=== PATIENT | male | born 1955 | race Caucasian/White ===

== ENCOUNTER → 2021-07-18 09:45 | Outpatient (BNVA) | payer MEDICARE, SELFPAY | PROVIDERS: PCP Internal Medicine; Visit Provider Surgery ==

== ENCOUNTER 2021-08-09 13:53 | Outpatient (REF) | payer MEDICARE, SELFPAY ==
[2021-08-09 13:59] VITALS: BMI 44.4
[2021-08-09 14:01] VITALS: BP 125/83; PULSE 106; RESP 16; TEMP 36.6; O2SAT 98
--- NOTE | 2021-08-09 14:22 | W.PM.OPN ---
Operative Note Operative Note Date of Service: 08/09/21 Narrative: Preop diagnosis: Skin lesion, right upper arm Postop diagnosis: The same Procedure: Excision of skin lesion, right upper arm under local anesthesia Surgeon: Reese Obregon MD Patient is a 66-year-old male with note of skin lesion on the right upper arm near the shoulder. This measured about 2.6 by 3 cm, elevated with pearly borders. He understood the technique of excision under local anesthesia and he was aware of the risks, benefits, and alternatives Was brought to the minor procedure room and placed in left lateral decubitus position. The area of the lesion was prepped and draped in the usual sterile fashion. I infiltrated the area with lidocaine 1%. I made an incision around the lesion in elliptical fashion using blade 15. With care being taken so as to make sure that we were including a margin of skin. This incision was deepened through the full-thickness of the skin and part of subcutaneous layer and this entire lesion along with normal margins was excised. I undermined as flaps on both sides the edges to allow closure without tension. I closed the incision with full-thickness nylon 3-0 and 2-0 sutures. Dressings were applied. The patient tolerated procedure well. There were no complication noted. Estimated blood loss was about 4 cc. The patient was given wound care instructions and will be seen in the office for follow-up visit.
[2021-08-09 14:23] VITALS: BP 121/73; PULSE 94; RESP 16; O2SAT 94
== END 2021-08-09 13:54 | disposition home or self-care (01) ==
LOC: HO.MS 13:53
PROVIDERS: PCP Internal Medicine; Visit Provider Surgery
PROC: (CPT 11603; principal; 2021-08-09 14:10)
DX: C43.61 Malignant melanoma of right upper limb, including shoulder (principal)
CPT/HCPCS: 11603; 36415; 81210; 81272; 81275; 81276; 81311; 81403; 88305; 88341; 88342

== ENCOUNTER → 2021-08-21 10:42 | Outpatient (BNVA) | payer MEDICARE, SELFPAY | PROVIDERS: PCP Internal Medicine; Visit Provider Surgery | DX: Z48.00 Encounter for change or removal of nonsurgical wound dressing (principal) | CPT/HCPCS: 99211 ==

== ENCOUNTER → 2021-08-23 10:49 | Outpatient (BNVA) | payer MEDICARE, SELFPAY | PROVIDERS: PCP Internal Medicine; Visit Provider Surgery | DX: Z48.3 Aftercare following surgery for neoplasm (principal); Z85.820 Personal history of malignant melanoma of skin | CPT/HCPCS: 99212 ==

== ENCOUNTER 2021-09-11 07:25 | Day surgery (SDC) | payer MEDICARE, SELFPAY ==
[2021-09-04 15:06] VITALS: BMI 45.8
--- NOTE | 2021-09-10 10:04 | HO.ANESPROP2 ---
HPI - Anesthesia Eval Consult details Narrative: 66yo M for Right [place] Node Biopsy, Wide Excision of Right Shoulder Melanoma with Skin graft PMFSH Active Problems Active Problems: All Active Problems (Updated 09/04/21 @ 15:11 by Nanci Bourgeois RN) Melanoma (Acute) Skin lesion of right arm (Acute) Hypertension (Acute) Past Medical History Medical History COVID-19 vaccine series completed Elevated cholesterol Hypertension Melanoma ANALI (obstructive sleep apnea) Skin lesion of right arm Family History Family History Mother Ovarian cancer Brother Skin cancer Surgical History Surgical History History of hernia surgery History of local excision of skin lesion History of rotator cuff surgery History of vasectomy Social History Social History Are you a primary primary care nurse practitioner to a significant other at home: No Do you presently have visiting nurse or other home services: No Patient Tobacco Use Status: Never used Tobacco Meds Allergies Allergy/AdvReac Type Severity Reaction Status Date / Time No Known Allergies Allergy Verified 09/17/21 11:33 Home Medications Medication Instructions Recorded Confirmed Last Taken Type losartan 100 1 tab PO DAILY 07/18/21 09/17/21 Unknown History mg-hydrochlorothiazide 25 mg tablet pravastatin 80 mg tablet 80 mg PO DAILY 07/18/21 09/17/21 Unknown History Exam Exam Date and Time: September 10, 2021 1004 Height,Weight and Vital Signs: Height 5 ft 10 in Weight 144.696 kg Pertinent Lab Results Pertinent Lab Results: Laboratory Tests 08/31/21 08/31/21 09:33 09:33 WBC 6.6 Hgb 14.2 Hct 41.0 L Plt Count 270 Sodium 142 Potassium 3.3 Chloride 105 Carbon Dioxide 28 BUN 11 Creatinine 0.97 Assessment and Plan Assessment Anesthesia Assessment: Chart Reviewed
[2021-09-11] VITALS (12 sets, daily range): BP systolic 116–132; BP diastolic 56–75; PULSE 83–95; RESP 12–20; TEMP 36.5–36.8; O2SAT 92–97
--- NOTE | ~2021-09-11 | NM_ITS ---
EXAMINATION: NM LYMPH SCINTIGRAPHY CLINICAL INFORMATION: Right shoulder melanoma. COMPARISON: None. TECHNIQUE: The subcutaneous soft tissues surrounding the incision in the right shoulder in the 12, 3, 6 and 9 o'clock axes were injected with 4 separate aliquots of 0.125 mCi technetium 99m lymphoseek for a total dose of 0.5 mCi. Immediate and delayed 1-hour images of the chest and total body were performed. FINDINGS: There is adequate radiotracer uptake seen in the right shoulder over the incision. No sentinel node activity is seen. NM/NM sentinel node w imaging IMPRESSION: No sentinel node activity seen.
[2021-09-11] MEDS: Lactated Ringers 1,000 ML 100 ML IVCONT (08:19)
--- NOTE | 2021-09-11 13:33 | P.OP_ITS ---
Operative Note Operative Note Date of Service: 09/11/21 Narrative: Preop diagnosis: Melanoma, right upper arm Postop diagnosis: Melanoma, right upper arm Procedure: Re-excision for wider margins, of melanoma, right upper arm with split thickness skin graft from the right thigh, and sentinel node biopsy from the axilla Surgeon: Reese Obregon MD physician office assistant: CORRY Holt Dave Patient is a 66-year-old male who had undergone an excision of a skin lesion from the right upper arm last month. This turned out to be a melanoma, 5 mm deep. I therefore explained to her that we needed to proceed with re-excision for wider margins, sentinel biopsy as well as split thickness skin graft. I explained to him the technique of this whole procedure. I reviewed the risks, benefits, and alternatives and he had given consent. He was brought to the operating room and placed under general anesthesia via endotracheal tube. He was tilted to the left side to expose the excision site on the lateral aspect the right upper arm near the shoulder. He had undergone nuclear scintigraphy earlier. I have reviewed these images with Dr. Verma of Radiology, and we could not visualize any lymph node that lit up even with delayed films.However, I felt that since the lesion was in the right upper arm, the lymphatic drainage would be in the axilla. Both the area of the previous excision site on the right upper arm as well as the donor site for the graft on the anterior thigh on the right were prepped and draped. A surgical time-out was done. The patient received cefazolin 2 g IV preoperatively I then marked my planned line of incision around the previous excision site, with additional 1.6 cm margins as the previous margins were 0.4. I inflated the planned line incision. I then made the incision using blade 15. All around the previous excision site. This carried down with electrocautery through the full- thickness skin. We then proceeded to dissect a thick amount of subcutaneous fat down to the fascia. This was also done using electrocautery. Continued to dissect until the entire previous excision site along with the full-thickness of the subcutaneous fat all the way to the fascia was excised. I then proceeded to cauterize oozing areas. I then applied a wet dressing to the area. We then proceeded to do our split thickness skin graft. We applied her all on the donor site. I then used a dermatome to harvest a 40 micron thickness of split thickness skin. We had then used a mesher to try to expand coverage of this graft. However the mesh which was small functioning so we had to manually mesh the graft with a blade 15. This did not expand the graft well so we had to harvest 2 more pieces of skin from the adjacent area of the donor site. The entire surface area of the open wound was about 6 cm x 5 cm in diameter. This was oval in shape. We positioned these skin grafts to cover the entire excision site. This were secured with 3-0 sutures. I made sure that there was contact between the graft and the base of the excision site to allow plasmatic imbibition. I then proceeded to apply Adaptic on the surface of the woundalong with a moist gauze packing with thick top dressings to provide pressure on the graft and keep constant contact with the base of the wound. We secured this thick dressing with wide tape. I then applied Xeroform dressing on the donor site and covered this with dry gauze. I then proceeded to do our until node biopsy. We changed gloves and setup I prepped the. Axilla. I then used the nuclear probe to localize elevated counts on the axilla. Once this was identified, I proceeded to make a short incision using blade 15. This carried down through the full-thickness skin and subcutaneous fat. I opened the fascia and continue to use the probe periodically to localize elevated counts in the axilla. We periodically scanned to identify the elevated counts and I was able to visualize this lymph node with a count of 65. This was excised with electrocautery and was sent for pathology. I continued to scan the entire axilla as well and there were no other elevated counts. However, I continued to probe and examine and palpate as well to make sure that we were not missing any other sentinel node. We spent an extended period of time scanning and rescanning the axilla for any elevated count. I was able to palpate another lymph node although the count was not elevated. This was also removed and sent for pathology as a lymph node. After a prolonged period of time scanning and rescanning the axilla, we could not identify any further elevated counts. I also scanned the right cervical area and there were no elevated counts on this area. I proceeded to irrigate the axillary excision site copiously. I observed for hemostasis. Once hemostasis was ensured, I proceeded to reapposed the subcutan eous layer with Dexon 3-0 interrupted sutures. Skin closure was achieved with Dexon 4-0 subcuticular running stitch. I infiltrated the area with Marcaine % for postop analgesia. Steri-Strips and dressings were applied. The procedure was then completed. The patient tolerated well. No complication noted. Initial fine counts of sponges and instruments were correct. Estimated blood loss about 30 cc The patient is extubated without difficulty and transferred to the recovery room with stable vital signs. Primary Cutaneous Melanoma Original Breslow thickness of the lesion: Invasive (to the tenth of a millimeter) Clinical margin from the edge of the lesion or the prior excision scar: 0.5 cm Depth down to the fascia; if not down to the fascia, then document why: Yes General Surg. - Synoptic Notes Primary Cutaneous Melanoma Original Breslow thickness of the lesion: Invasive (to the tenth of a millimeter) Clinical margin from the edge of the lesion or the prior excision scar: 0.5 cm Depth down to the fascia; if not down to the fascia, then document why: Yes
--- NOTE | 2021-09-11 13:45 | P.BOP_ITS ---
Brief Operative Note Date of Service: 09/11/21 Pre-op diagnosis: Melanoma, right upper arm Procedure: Re-excision for wider margins of the melanoma right upper arm, with split-thickness skin graft from the right thigh, and sentinel node biopsy Surgeon: Reese Obregon MD Anesthesia: GETA Was an Branding Machine Tender used for this Procedure?: Yes Branding Machine Tender: Yanet Acosta Estimated blood loss (mL): 30 Pathology: other (Re-excision site, sentinel node with a count of 65, additional axillary lymph node) Condition: stable Disposition: PACU
[2021-09-11] MEDS: oxyCODONE HCl Immed Release 5 MG TABLET 10 MG PO (14:02)
[2021-09-11] MEDS: fentaNYL citrate/PF 100 MCG/2 ML VIAL 50 MCG IVPUSH ×2 (14:02→14:22)
== END 2021-09-11 15:32 | disposition home or self-care (01) ==
PROVIDERS: PCP Internal Medicine; Visit Provider Surgery
PROC: (CPT 11602; principal; 2021-09-11 11:20)
PROC: (CPT 11602; 2021-09-11 11:20)
DX: C43.61 Malignant melanoma of right upper limb, including shoulder (principal); I10 Essential (primary) hypertension; E66.9 Obesity, unspecified; Z68.42 Body mass index [BMI] 45.0-49.9, adult; Z79.899 Other long term (current) drug therapy
CPT/HCPCS: 11602; 15100; 38525; 78195; 88305; 88307; 88341; 88342; A9520; J0690; J1100; J2250; J2405; J3010

== ENCOUNTER → 2021-09-13 11:00 | Outpatient (BNVA) | payer MEDICARE, SELFPAY | PROVIDERS: PCP Internal Medicine; Visit Provider Surgery | DX: C43.9 Malignant melanoma of skin, unspecified (principal) | CPT/HCPCS: 99212 ==

== ENCOUNTER → 2021-09-14 14:18 | Outpatient (BNVA) | payer MEDICARE, SELFPAY | PROVIDERS: PCP Internal Medicine; Visit Provider Surgery | DX: C43.9 Malignant melanoma of skin, unspecified (principal) | CPT/HCPCS: 99212 ==

== ENCOUNTER → 2021-09-17 11:22 | Outpatient (BNVA) | payer MEDICARE, SELFPAY | PROVIDERS: PCP Internal Medicine; Referring Provider Internal Medicine; Visit Provider Surgery | DX: Z48.3 Aftercare following surgery for neoplasm (principal); C43.9 Malignant melanoma of skin, unspecified | CPT/HCPCS: 99212 ==

== ENCOUNTER → 2021-09-19 09:57 | Outpatient (BNVA) | payer MEDICARE, SELFPAY | PROVIDERS: PCP Internal Medicine; Visit Provider Surgery | DX: Z48.01 Encounter for change or removal of surgical wound dressing (principal) | CPT/HCPCS: 99211 ==

== ENCOUNTER → 2021-09-21 10:51 | Outpatient (BNVA) | payer MEDICARE, SELFPAY | PROVIDERS: PCP Internal Medicine; Visit Provider Surgery | DX: Z48.00 Encounter for change or removal of nonsurgical wound dressing (principal) | CPT/HCPCS: 99211 ==

== ENCOUNTER → 2021-09-24 10:41 | Outpatient (BNVA) | payer MEDICARE, SELFPAY | PROVIDERS: PCP Internal Medicine; Referring Provider Internal Medicine; Visit Provider Surgery | DX: Z48.00 Encounter for change or removal of nonsurgical wound dressing (principal) | CPT/HCPCS: 99211 ==

== ENCOUNTER → 2021-09-26 10:51 | Outpatient (BNVA) | payer MEDICARE, SELFPAY | PROVIDERS: PCP Internal Medicine; Visit Provider Surgery | DX: Z48.3 Aftercare following surgery for neoplasm (principal); Z85.820 Personal history of malignant melanoma of skin | CPT/HCPCS: 99212 ==

== ENCOUNTER → 2021-10-11 15:43 | Outpatient (BNVA) | payer MEDICARE, SELFPAY | PROVIDERS: PCP Internal Medicine; Visit Provider Surgery | DX: Z48.3 Aftercare following surgery for neoplasm (principal); Z85.820 Personal history of malignant melanoma of skin | CPT/HCPCS: 99212 ==

== ENCOUNTER → 2021-11-01 09:20 | Outpatient (BNVA) | payer MEDICARE, SELFPAY | PROVIDERS: PCP Internal Medicine; Visit Provider Surgery | DX: Z48.3 Aftercare following surgery for neoplasm (principal); Z85.820 Personal history of malignant melanoma of skin | CPT/HCPCS: 17250; 99212 ==

== ENCOUNTER 2021-12-06 10:17 | Outpatient (REF) | payer MEDICARE, SELFPAY ==
[2021-12-06 11:37] LABS: MANUAL DIFF FLAG NO
[2021-12-06 11:55] LABS: Basophils Percent Auto 0.3 % (0-2); Eosinophils Absolute Auto 0.1 X10*3/uL (0.0-0.4); Eosinophils Percent Auto 1.8 % (0-4); Hematocrit 46.2 % (42.0-52.0); Hemoglobin 15.8 g/dl (14.0-18.0); Imm Gran Abs Auto 0.04 X10*3/uL (0.00-0.03); Imm Gran Pct Auto 0.6 % (0.0-0.4); Lymphocytes Absolute Auto 1.8 X10*3/uL (1.2-4.9); Lymphocytes Percent Auto 25.7 % (20-40); Mean Corpuscular HGB Conc 34.2 g/dl (31.0-36.0); Mean Corpuscular Hemoglobin 31.5 pg (27.0-33.0); Mean Platelet Volume 9.8 fL (9.4-12.4); Monocytes Absolute Auto 0.6 X10*3/uL (0.1-1.2); Monocytes Percent Auto 8.2 % (2-11); Neutrophils Absolute Auto 4.3 x10*3/uL (2.0-8.3); Neutrophils Percent Auto 63.4 % (45-73); Platelet Count 294 X10*3/uL (160-400); Red Blood Count 5.02 X10*6/uL (4.60-5.80); Red Cell Distribution Width 13.2 % (11.0-16.0); White Blood Count 6.8 X10*3/uL (4.8-10.8)
[2021-12-06 12:21] LABS: Alanine Aminotransferase 23 U/L (0-40); Albumin Level 4.4 g/dL (3.5-5.0); Alkaline Phosphatase 80 U/L (39-117); Anion Gap 12 (12-20); Aspartate Amino Transferase 17 U/L (5-37); Bilirubin Total 0.6 mg/dL (0.0-1.0); Blood Urea Nitrogen 19 mg/dL (9-16); Carbon Dioxide 28 mmol/L (22-29); Chloride 102 mmol/L (96-108); Cholesterol 203 mg/dL; Estimated Glomerular Filt Rate > 60; Glucose Random 112 mg/dL (60-115); HDL Cholesterol 36 mg/dL; LDL Cholesterol Calculated 141 mg/dl; Sodium 138 mmol/L (135-145); Total Protein 7.2 g/dL (6.5-8.0); Triglycerides 133 mg/dL
== END 2021-12-06 10:18 | disposition home or self-care (01) ==
LOC: HO.LAB 10:17
PROVIDERS: PCP Internal Medicine; Referring Provider Internal Medicine; Visit Provider Surgery
DX: Z00.01 Encounter for general adult medical examination with abnormal findings (principal); C43.9 Malignant melanoma of skin, unspecified; M48.062 Spinal stenosis, lumbar region with neurogenic claudication; L85.8 Other specified epidermal thickening; I10 Essential (primary) hypertension; E78.00 Pure hypercholesterolemia, unspecified
CPT/HCPCS: 36415; 80053; 80061; 84443; 85025; 99212

== ENCOUNTER 2022-06-24 10:30 | Outpatient (REF) | payer MEDICARE, SELFPAY ==
[2022-06-24 11:42] LABS: Estimated Average Glucose 105 mg/dL; Hemoglobin A1c % 5.3 %
[2022-06-24 12:17] LABS: Alanine Aminotransferase 20 U/L (0-40); Alkaline Phosphatase 117 U/L (39-117); Anion Gap 14 (12-20); Aspartate Amino Transferase 14 U/L (5-37); Bilirubin Total 0.4 mg/dL (0.0-1.0); Blood Urea Nitrogen 13 mg/dL (9-16); Calcium 8.7 mg/dL (8.4-10.2); Carbon Dioxide 28 mmol/L (22-29); Chloride 105 mmol/L (96-108); Cholesterol 154 mg/dL; Estimated Glomerular Filt Rate > 60; Glucose Random 111 mg/dL (60-115); HDL Cholesterol 44 mg/dL; LDL Cholesterol Calculated 96 mg/dl; Potassium 3.6 mmol/L (3.3-5.1); Sodium 143 mmol/L (135-145); Total Protein 6.4 g/dL (6.5-8.0); Triglycerides 73 mg/dL
== END 2022-06-24 10:31 | disposition home or self-care (01) ==
LOC: HO.LAB 10:30
PROVIDERS: PCP Internal Medicine; Visit Provider Internal Medicine
DX: C43.9 Malignant melanoma of skin, unspecified (principal); E78.00 Pure hypercholesterolemia, unspecified; G47.33 Obstructive sleep apnea (adult) (pediatric); I10 Essential (primary) hypertension; R73.01 Impaired fasting glucose
CPT/HCPCS: 36415; 80053; 80061; 83036

== ENCOUNTER 2022-11-22 11:43 | Outpatient (REF) | payer MEDICARE, SELFPAY ==
[2022-11-22 13:02] LABS: Alanine Aminotransferase 36 U/L (0-40); Albumin Level 4.4 g/dL (3.5-5.0); Alkaline Phosphatase 96 U/L (39-117); Anion Gap 14 (12-20); Aspartate Amino Transferase 21 U/L (5-37); Bilirubin Total 0.8 mg/dL (0.0-1.0); Blood Urea Nitrogen 15 mg/dL (9-16); Calcium 9.5 mg/dL (8.4-10.2); Carbon Dioxide 28 mmol/L (22-29); Chloride 102 mmol/L (96-108); Estimated Glomerular Filt Rate > 60; Glucose Random 121 mg/dL (60-115); Potassium 3.5 mmol/L (3.3-5.1); Sodium 140 mmol/L (135-145)
[2022-11-22 13:08] LABS: Prostate Specific Antigen Scr 6.03 ng/mL (<0.05-4.0)
== END 2022-11-22 11:44 | disposition home or self-care (01) ==
LOC: HO.LAB 11:43
PROVIDERS: PCP Internal Medicine; Visit Provider Internal Medicine
DX: Z00.00 Encounter for general adult medical examination without abnormal findings (principal); E78.00 Pure hypercholesterolemia, unspecified; H02.842 Edema of right lower eyelid; Z12.5 Encounter for screening for malignant neoplasm of prostate
CPT/HCPCS: 36415; 80053; 84153

== ENCOUNTER 2023-05-01 12:05 | Outpatient (REF) | payer MEDICARE, SELFPAY ==
[2023-05-01 12:27] LABS: MANUAL DIFF FLAG NO
[2023-05-01 12:54] LABS: Basophils Percent Auto 0.3 % (0-2); Eosinophils Absolute Auto 0.2 X10*3/uL (0.0-0.4); Eosinophils Percent Auto 2.7 % (0-4); Hematocrit 42.2 % (42.0-52.0); Hemoglobin 14.6 g/dl (14.0-18.0); Imm Gran Abs Auto 0.03 X10*3/uL (0.00-0.03); Imm Gran Pct Auto 0.5 % (0.0-0.4); Lymphocytes Absolute Auto 1.6 X10*3/uL (1.2-4.9); Lymphocytes Percent Auto 24.5 % (20-40); Mean Corpuscular HGB Conc 34.6 g/dl (31.0-36.0); Mean Corpuscular Hemoglobin 31.3 pg (27.0-33.0); Mean Corpuscular Volume 90.4 fL (80.0-98.0); Mean Platelet Volume 9.5 fL (9.4-12.4); Monocytes Absolute Auto 0.5 X10*3/uL (0.1-1.2); Monocytes Percent Auto 7.1 % (2-11); Neutrophils Absolute Auto 4.1 x10*3/uL (2.0-8.3); Neutrophils Percent Auto 64.9 % (45-73); Platelet Count 289 X10*3/uL (160-400); Red Blood Count 4.67 X10*6/uL (4.60-5.80); Red Cell Distribution Width 13.4 % (11.0-16.0); White Blood Count 6.3 X10*3/uL (4.8-10.8)
[2023-05-01 13:07] LABS: Estimated Average Glucose 103 mg/dL; Hemoglobin A1c % 5.2 %
[2023-05-01 13:36] LABS: Alanine Aminotransferase 19 U/L (0-40); Albumin Level 4.1 g/dL (3.5-5.0); Alkaline Phosphatase 102 U/L (39-117); Anion Gap 14 (12-20); Aspartate Amino Transferase 17 U/L (5-37); Bilirubin Total 0.8 mg/dL (0.0-1.0); Blood Urea Nitrogen 15 mg/dL (9-16); Carbon Dioxide 25 mmol/L (22-29); Chloride 105 mmol/L (96-108); Estimated Glomerular Filt Rate > 60; Glucose Random 93 mg/dL (60-115); Potassium 3.7 mmol/L (3.3-5.1); Sodium 140 mmol/L (135-145)
[2023-05-01 13:51] LABS: Thyroid Stimulating Hormone 0.85 uIU/mL (0.32-4.0)
== END 2023-05-01 12:06 | disposition home or self-care (01) ==
LOC: HO.LAB 12:05
PROVIDERS: PCP Internal Medicine; Visit Provider Internal Medicine
DX: G47.33 Obstructive sleep apnea (adult) (pediatric) (principal); I10 Essential (primary) hypertension; R73.01 Impaired fasting glucose; R97.20 Elevated prostate specific antigen [PSA]
CPT/HCPCS: 36415; 80053; 83036; 84443; 85025

== ENCOUNTER 2024-09-07 10:58 | Outpatient (REF) | payer MEDICARE, SELFPAY ==
[2024-09-07 11:37] LABS: MANUAL DIFF FLAG NO
[2024-09-07 11:58] LABS: Basophils Percent Auto 0.6 % (0-2); Eosinophils Absolute Auto 0.3 X10*3/uL (0.0-0.4); Eosinophils Percent Auto 4.2 % (0-4); Hematocrit 43.6 % (42.0-52.0); Hemoglobin 14.3 g/dl (14.0-18.0); Imm Gran Abs Auto 0.05 X10*3/uL (0.00-0.03); Imm Gran Pct Auto 0.7 % (0.0-0.4); Lymphocytes Absolute Auto 1.7 X10*3/uL (1.2-4.9); Lymphocytes Percent Auto 23.3 % (20-40); Mean Corpuscular HGB Conc 32.8 g/dl (31.0-36.0); Mean Corpuscular Hemoglobin 30.3 pg (27.0-33.0); Mean Corpuscular Volume 92.4 fL (80.0-98.0); Mean Platelet Volume 9.1 fL (9.4-12.4); Monocytes Absolute Auto 0.6 X10*3/uL (0.1-1.2); Monocytes Percent Auto 7.8 % (2-11); Neutrophils Absolute Auto 4.5 x10*3/uL (2.0-8.3); Neutrophils Percent Auto 63.4 % (45-73); Platelet Count 322 X10*3/uL (160-400); Red Blood Count 4.72 X10*6/uL (4.60-5.80); Red Cell Distribution Width 14.3 % (11.0-16.0); White Blood Count 7.1 X10*3/uL (4.8-10.8)
[2024-09-07 12:17] LABS: Estimated Average Glucose 117 mg/dL; Hemoglobin A1C 143.8444 umol/L; Hemoglobin A1c % 5.7 % (<6.0); Total Hemoglobin (HGBA1C) 3672.3048 umol/L
[2024-09-07 12:42] LABS: Alanine Aminotransferase 25 U/L (0-40); Albumin Level 4.1 g/dL (3.5-5.0); Alkaline Phosphatase 114 U/L (39-117); Anion Gap 12 (12-20); Aspartate Amino Transferase 20 U/L (5-37); Bilirubin Total 0.5 mg/dL (0.0-1.0); Blood Urea Nitrogen 12 mg/dL (9-16); Calcium 9.2 mg/dL (8.4-10.2); Carbon Dioxide 27 mmol/L (22-29); Chloride 107 mmol/L (96-108); Cholesterol 147 mg/dL (<200); Estimated Glomerular Filt Rate > 60; Glucose Random 120 mg/dL (60-115); HDL Cholesterol 45 mg/dL (>40); LDL Cholesterol Calculated 88 mg/dL (<100); Potassium 4.6 mmol/L (3.3-5.1); Sodium 141 mmol/L (135-145); Triglycerides 71 mg/dL (<150)
[2024-09-07 13:07] LABS: Prostate Specific Antigen Scr 5.18 ng/mL (<0.05-4.0)
== END 2024-09-07 10:59 | disposition home or self-care (01) ==
LOC: HO.LAB 10:58
PROVIDERS: PCP Internal Medicine; Visit Provider Internal Medicine
DX: E78.00 Pure hypercholesterolemia, unspecified (principal); G47.33 Obstructive sleep apnea (adult) (pediatric); I10 Essential (primary) hypertension; R97.20 Elevated prostate specific antigen [PSA]; Z68.42 Body mass index [BMI] 45.0-49.9, adult; Z12.5 Encounter for screening for malignant neoplasm of prostate; Z13.1 Encounter for screening for diabetes mellitus
CPT/HCPCS: 36415; 80053; 80061; 83036; 84153; 85025

== ENCOUNTER 2025-03-24 14:01 | Outpatient (REF) | payer MEDICARE, SELFPAY ==
[2025-03-24 15:05] LABS: Estimated Average Glucose 114 mg/dL; Hemoglobin A1c % 5.6 % (<6.0); Total Hemoglobin (HGBA1C) 3655.3053 umol/L
[2025-03-24 15:22] LABS: Alanine Aminotransferase 23 U/L (0-40); Albumin Level 4.2 g/dL (3.5-5.0); Anion Gap 14 (12-20); Aspartate Amino Transferase 23 U/L (5-37); Bilirubin Total 0.6 mg/dL (0.0-1.0); Blood Urea Nitrogen 15 mg/dL (9-16); Calcium 9.8 mg/dL (8.4-10.2); Carbon Dioxide 28 mmol/L (22-29); Chloride 104 mmol/L (96-108); Estimated Glomerular Filt Rate > 60; Glucose Random 105 mg/dL (60-115); Potassium 3.9 mmol/L (3.3-5.1); Sodium 142 mmol/L (135-145); Total Protein 7.1 g/dL (6.5-8.0)
[2025-03-24 15:36] LABS: Prostate Specific Antigen 8.18 ng/mL (<0.05-4.0)
[2025-03-24 15:44] LABS: Thyroid Stimulating Hormone 1.42 uIU/mL (0.32-4.0)
[2025-03-24 15:54] LABS: Alkaline Phosphatase 113 U/L (39-117)
== END 2025-03-24 14:02 | disposition home or self-care (01) ==
LOC: HO.LAB 14:01
PROVIDERS: PCP Internal Medicine; Visit Provider Internal Medicine
DX: E66.01 Morbid (severe) obesity due to excess calories (principal); E78.00 Pure hypercholesterolemia, unspecified; G47.33 Obstructive sleep apnea (adult) (pediatric); R97.20 Elevated prostate specific antigen [PSA]; Z12.5 Encounter for screening for malignant neoplasm of prostate; Z13.1 Encounter for screening for diabetes mellitus
CPT/HCPCS: 36415; 80053; 83036; 84153; 84443

== ENCOUNTER 2025-06-29 13:34 | Outpatient (AMB) | payer MEDICARE, SELFPAY ==
--- NOTE | 2025-06-29 13:54 | A.OFFVIS_ITS ---
Intake Visit Reasons: elevated PSA Intake Note: New Patient is present for ELEVATED PSA Urology Rx:NONE Blood Thinners:NONE Imaging completed: NONE Labs done : 03/24/25 PSA 8.18 In Store Marketing Associate Required: No Accompanied by: Self / Same As Patient Allergies No Known Allergies Allergy (Verified 06/29/25 13:56) HPI Comments Details: Kermit is a pleasant male. He is a patient of Dr. Lopez. He is seen for the following urologic conditions - elevated PSA No known family history of prostate issues Discussed trial finasteride versus immediate prostate biopsy JO ANN normal His preferences to trial medication Elevated PSA Continued movement of PSA - PSA 09/02 5.1, 04/03 8.2 [facility] Medical History COVID-19 vaccine series completed Elevated cholesterol Hypertension Melanoma ANALI (obstructive sleep apnea) Skin lesion of right arm Surgical History History of hernia surgery History of local excision of skin lesion History of rotator cuff surgery History of vasectomy Family History Mother Ovarian cancer Brother Skin cancer Social History Household Members: Spouse Housing: Apartment Are you a primary child care team lead to a significant other at home: No Do you presently have visiting nurse or other home services: No Patient Tobacco Use Status: Never used Tobacco service: No Current occupational status: unemployed Review of Systems Const Denies chills and Denies fever(s) Card Reports no additional complaints and Denies syncope Resp Denies cough GI Denies abdominal pain and Denies heartburn Reports as per HPI and Denies change in libido Neuro Denies syncope Psych Denies change in libido Endo Denies change in libido Physical Exam Const General: cooperative, healthy appearing, comfortable and no acute distress Orientation/consciousness: patient oriented x3 HEENT Face and sinus: Yes normal facial exam Mouth: moist mucous membranes Neck Neck: Yes normal visual inspection, Yes full ROM and Yes trachea midline Chest Chest palpation & inspection: normal inspection of the chest Resp Effort & Inspection: normal respiratory effort, able to speak in complete sentences and no respiratory distress GI Inspection: Yes normal to inspection Back/Spine/Pelvis Cervical Spine: normal cervical lordosis Thoracic/Lumbar Spine: thoracic and lumbar spine normal to inspection Skin General skin exam: no rashes or lesions noted Neuro General: patient oriented x3, gait normal, tone normal and moves all extremities Extrem General: Yes normal to inspection and Yes capillary refill normal Results AMB Urinalysis, Automated UA Leukoctes 0 Armando/uL Last Edit by BRITTANY Ruiz on 06/29/25 14:20 UA Nitrite Negative Last Edit by BRITTANY Ruiz on 06/29/25 14:20 UA Urobilinogen 3.5 mg/dL Last Edit by BRITTANY Ruiz on 06/29/25 14:2 0 UA Protein 15 mg/dL Last Edit by BRITTANY Ruiz on 06/29/25 14:20 UA pH 6.0 Last Edit by Alexandrea Hu CCM on 06/29/25 14:20 UA Blood 0 Vitor/uL Last Edit by BRITTANY Ruiz on 06/29/25 14:20 UA Specific [place] 1.015 Last Edit by BRITTANY Ruiz on 06/29/25 14: 20 UA Ketone Negative Last Edit by BRITTANY Ruiz on 06/29/25 14:20 UA Bilirubin 35 mg/dL Last Edit by BRITTANY Ruiz on 06/29/25 14:20 UA Glucose 0 mg/dL Last Edit by BRITTANY Ruiz on 06/29/25 14:20 Assessment & Plan Assessment & Plan (1) Elevated PSA: Code(s): R97.20 - Elevated prostate specific antigen [PSA] Category: Medical Plan Four month follow-up PSA Trial finasteride Orders: Orders AMB Urinalysis Automated Today Z13.9 - Encounter for screening, unspecified PSA,Total (Free>4and<10) 4 Months R97.20 - Elevated prostate specific antigen [PSA] Medications: New finasteride 5 mg PO DAILY 90 tabs 1RF 90 days R97.20 - Elevated prostate specific antigen [PSA] Patient Instructions: This note is constructed using voice recognition software. While every effort has been made to ensure accuracy director funds development errors may have been included. Imaging studies, laboratory and physical exam results were discussed and reviewed in detail. No major barriers to patient understanding were identified. An opportunity to ask questions regarding the treatment plan was provided. All questions were answered. The patient expressed understanding and agreement with the above treatment plan. The patient is aware they should contact our office by phone for worsening of their current condition or the appearance of new urologic symptoms. Compliance is encouraged with any medications and followup testing that is ordered. It is a privilege to participate in the urologic care of your patient. If you have any questions or concerns regarding treatment for the above conditions, or other urologic issues, please do not hesitate to contact me. The office telephone contact is [phone]. Sincerely, Dr Satya Cha MD, [facility] - Urology Compassionate Specialist Care for the Genitourinary System Coding Level of Care Code New Pt Level 4 (65488) Diagnoses Elevated PSA R97.20
--- OUTSIDE RECORDS SUMMARY | 2025-06-29 14:29 | XMS_ITS | Patient Health Record ---
Author Organization [facility] Address [address] [place] [address] Care Team Providers Care Solar Mechanical Engineer Name Role Phone Jessica Airam Primary Care Provider UnavailDanilo Whitmore Jr Unavailable Reason For Referral No Information Medications Medication SIG (Take, Route, Frequency, Duration) Notes Start Date End Date Status Colyte with Flavor Packs 240 GM As direc pritesh Orally Over the specified time. for 1 day(s) 01/26/2015 Active hydroCHLOROthiazide 12.5 MG 1 capsule Or ally Once a day Active Problems Problem Type SNOMED Code ICD Code Onset Dates Problem Status W/U Status Risk Notes Problem 275784739 Colon cancer screening (V76.51) Active confirmed Problem 185455938 Encounter for long-term (current) use of other high-risk medications (V58.69) Active confirmed Plan Of Treatment Future Test Test Name Order Date COLONOSCOPY 01/26/2015 Insurance Providers Payer Name Payer Address Payer Phone Subscriber Number Group Number Insured Name Patient Relationship to Insured Coverage Start Date Coverage End Date [employer] [address] ATTN [place]S [place] [address] [id number] SANDOR LEON Self - patient is the insured Medical (General) History Medical History History ICD Code Denies [place],DM,CVA,Lung disease,renal dise ase hypertension Surgical History Surgery Date(Month/Year) rotator cuff tear repair 12/2012
== END 2025-06-29 14:36 | disposition home or self-care (01) ==
LOC: HO.HUSH 13:35
PROVIDERS: PCP Internal Medicine; Visit Provider Urology
DX: Z13.9 Encounter for screening, unspecified (principal); R97.20 Elevated prostate specific antigen [PSA]
CPT/HCPCS: 99204

== ENCOUNTER → 2025-06-29 13:34 | Outpatient (BNVA) | payer MEDICARE, SELFPAY | PROVIDERS: PCP Internal Medicine; Visit Provider Urology | DX: R97.20 Elevated prostate specific antigen [PSA] (principal); Z13.9 Encounter for screening, unspecified | CPT/HCPCS: 81003; 99202 ==

== ENCOUNTER 2025-10-18 11:26 | Outpatient (REF) | payer MEDICARE, SELFPAY ==
[2025-10-18 13:18] LABS: PSA,Total (Free>4and<10) 2.97 ng/mL (0.00-4.00)
== END 2025-10-18 11:27 ==
LOC: HO.LAB 11:26
PROVIDERS: Absent Provider Internal Medicine; PCP Internal Medicine; Visit Provider Urology
DX: Z12.5 Encounter for screening for malignant neoplasm of prostate (principal); R97.20 Elevated prostate specific antigen [PSA]; I10 Essential (primary) hypertension; M48.062 Spinal stenosis, lumbar region with neurogenic claudication; M51.16 Intervertebral disc disorders with radiculopathy, lumbar region
CPT/HCPCS: 36415; 84153

== ENCOUNTER 2025-10-28 10:23 | Outpatient (AMB) | payer MEDICARE, SELFPAY ==
--- NOTE | 2025-10-28 10:24 | A.OFFVIS_ITS ---
Intake Visit Reasons: 4M PSA(set) Intake Note: Reason for Visit: Telehealth PSA Follow Up Urology Meds: Finasteride Blood Thinners: None Labs: PSA- 2.97 (10/18/2025) Last PSA- 8.18(03/24/25) Imaging: None Last PVR: None Allergies No Known Allergies Allergy (Verified 06/29/25 13:56) HPI Comments Details: Kermit is a pleasant male. He is a patient of Dr. Lopez. He is seen for the following urologic conditions - elevated PSA - lower urinary tract symptoms Telemedicine Evaluation 15 min Consultation [employer] drop in PSA on finasteride Has noticed that he can sleep through the night which is an improvement on his baseline urinary performance Elevated PSA Continued movement of PSA - PSA 09/02 5.1, 04/03 8.2, 11/03 2.9 No known family history of prostate issues Discussed trial finasteride versus immediate prostate biopsy JO ANN normal PFSH Medical History COVID-19 vaccine series completed Elevated cholesterol Hypertension Melanoma ANALI (obstructive sleep apnea) Skin lesion of right arm Surgical History History of hernia surgery History of local excision of skin lesion History of rotator cuff surgery History of vasectomy Family History Mother Ovarian cancer Brother Skin cancer Social History Household Members: Spouse Housing: Apartment Are you a primary residential care officer to a significant other at home: No Do you presently have visiting nurse or other home services: No Patient Tobacco Use Status: Never used Tobacco service: No Current occupational status: unemployed Review of Systems Const All systems reviewed & are unremarkable except as noted in HPI and below Reports no additional complaints Resp Reports no additional complaints GI Reports no additional complaints Reports as per HPI Musc Reports no additional complaints Physical Exam Telemedicine evaluation Appropriate responses Regular breathing rate and rhythm HEENT Head: Yes normal to inspection Ears: hearing grossly normal bilaterally Eyes General: appearance normal, both eyes and all related structures Neck Neck: Yes normal visual inspection Chest Chest palpation & inspection: normal inspection of the chest Resp Effort & Inspection: normal respiratory effort and able to speak in complete sen tences Telehealth Telehealth Telehealth Platform: [facility] Location of provider rendering services: practice address Location of patient: address on file Patient Identification confirmed using: Name, : Yes Telehealth method: video Patient verbally consented to treatment: Yes Patient verbally consented to billing insurance company: Yes Patient informed of any privacy concerns related to visit: Yes Minutes spent on Phone/Video with Pt.: 15 Assessment & Plan Assessment & Plan (1) Elevated PSA: Code(s): R97.20 - Elevated prostate specific antigen [PSA] Category: Medical Plan Continue finasteride Six-month follow-up PSA office Orders: Orders Prostate Specific Antigen 6 Months R97.20 - Elevated prostate specific antigen [PSA] Medications: Refilled finasteride 5 mg PO DAILY 90 tabs 1RF 90 days R97.20 - Elevated prostate specific antigen [PSA] Patient Instructions: This note is constructed using voice recognition software. While every effort has been made to ensure accuracy disintegrator operator errors may have been included. Imaging studies, laboratory and physical exam results were discussed and reviewed in detail. No major barriers to patient understanding were identified. An opportunity to ask questions regarding the treatment plan was provided. All questions were answered. The patient expressed understanding and agreement with the above treatment plan. The patient is aware they should contact our office by phone for worsening of their current condition or the appearance of new urologic symptoms. Compliance is encouraged with any medications and followup testing that is ordered. It is a privilege to participate in the urologic care of your patient. If you have any questions or concerns regarding treatment for the above conditions, or other urologic issues, please do not hesitate to contact me. The office telephone contact is [phone]. Sincerely, Dr Satya Cha MD, [facility] - Urology Compassionate Specialist Care for the Genitourinary System Coding Level of Care Code Tele Est Pt Level 3 (17378) Diagnoses Elevated PSA R97.20
--- OUTSIDE RECORDS SUMMARY | 2025-10-28 11:52 | XMS_ITS | Patient Health Record ---
Author Organization [facility] Address [address] [place] [address] Care Team Providers Care Cdl Team Truck Driver Name Role Phone Juanasenait Airam Primary Care Provider UnavailDanilo Whitmore Jr Unavailable [phone] Reason For Referral No Information Medications Medication SIG (Take, Route, Frequency, Duration) Notes Start Date End Date Status Colyte with Flavor Packs 240 GM Solution Reconstituted As directed Orally Over the specified time.; Duration: 1 day(s) 01/26/2015 Active hydroCHLOROthiazide 12.5 MG Capsule 1 capsule Orally Once a day Active Social History Social History Additional Details Category Social Info Options Details Miscellaneous: Marital status: Occupation: unemployed Problems Problem Type SNOMED Code ICD Code Onset Dates Problem Status W/U Status Risk Notes Problem Colon cancer screening (928992034) Colon cancer screening (V76.51) Active confirmed Problem Long-term drug therapy (767232317) Encounter for long-term (current) use of other high-risk medications (V58.69) Active confirmed Plan Of Treatment Future Test Test Name Order Date COLONOSCOPY 01/26/2015 Insurance Providers Payer Name Payer Address Payer Phone Subscriber Number Group Number Insured Name Patient Relationship to Insured Coverage Start Date Coverage End Date [employer]IC[employer] [address] [place] [address] [id number] SANDOR LEON Self - patient is the insured Medical (General) History Medical History History ICD Code Denies [place],DM,CVA,Lung disease,renal dise ase hypertension Surgical History Surgery Date(Month/Year) rotator cuff tear repair 12/2012
== END 2025-10-28 10:59 | disposition home or self-care (01) ==
LOC: HO.HUSH 10:23
PROVIDERS: PCP Internal Medicine; Visit Provider Urology
DX: R97.20 Elevated prostate specific antigen [PSA] (principal)
CPT/HCPCS: 99213